=== PATIENT | female | born 1995 | race Caucasian/White ===

== ENCOUNTER 2021-04-11 11:57 | Outpatient (CLI) | payer BC ==
[~2021-04-11 11:57] MED LIST: ACET-2267 PO; ACYC400T21 PO; AMPH20TA2 PO; BUPR150T24 PO; IBUP-30 PO; VENL150C PO; VENL75CA PO
[2021-04-11 12:05] VITALS: BP 137/90
[2021-04-11] MEDS ORDERED: IRON DEXTRAN 1,000 MG/NS 250 ML IVPB IV ONE ×2 (12:15)
[2021-04-11] MEDS ORDERED: IRON DEXTRAN 25 MG/NS 6.25 ML TOTAL VOLUME IV ONE ×3 (12:15)
== END 2021-04-11 15:55 | disposition home or self-care (01) ==
LOC: SDC 11:57
PROVIDERS: ATTEND Internal Medicine
DX: E61.1 Iron deficiency (principal)

== ENCOUNTER → 2022-09-18 | Outpatient (CLI) | payer OTHER, BC ==
[~2022-09-18] VITALS: Ht 162.5 cm; Wt 99.0 kg
[~2022-09-18] MED LIST changes: +CARI1.5C PO; +SPIR50TA PO; +VALA500T4 PO; -VENL150C PO; +VENL150C3 PO; +VENL75TA2 PO
== END | disposition home or self-care (01) ==
LOC: PREOP 05:29
PROVIDERS: ATTEND Specialist
DX: Z01.818 Encounter for other preprocedural examination (principal)

== ENCOUNTER 2022-09-21 10:06 | Day surgery (SDC) | payer OTHER, BC ==
[~2022-09-21] VITALS: Ht 162.5 cm; Wt 99.0 kg
[2022-09-21] VITALS (10 sets, daily range): BP systolic 122–145; BP diastolic 75–96
[~2022-09-21 10:06] MED LIST changes: -VENL75TA2 PO
[2022-09-21] MEDS ORDERED: ceFAZolin INJECTION 2,000 MG in NS (IVPB) 50 ML IV ONE (10:30)
[2022-09-21] MEDS: LACTATED RINGERS 1,000 ML IV PRN ×2 (11:14→14:00)
[2022-09-21] MEDS ORDERED: LIDOCAINE PF 2% 5 ML (XYLOCAINE) VIAL ONE (11:51)
[2022-09-21] MEDS ORDERED: ONDANSETRON 4 MG/2 ML (SDV) Z0FRAN ONE (11:51)
[2022-09-21] MEDS ORDERED: fentaNYL INJ 100 MCG/2 ML AMP ONE (11:51)
[2022-09-21] MEDS ORDERED: proPOfol 200 MG/20 ML (DIPRIVAN) VIAL IV ONE (11:51)
[2022-09-21] MEDS ORDERED: MIDAZOLAM 2 MG/2 ML (VERSED) VIAL ONE (11:51)
[2022-09-21] MEDS ORDERED: LIDOCAINE/EPI 1%-1:100,000 (XYLOCAINE) 30ML ONE (12:11)
[2022-09-21] MEDS ORDERED: PHENYLEPHRINE 0.5% NASAL SPR (NEO-SYNEPHRINE) REG ONE (12:11)
[2022-09-21] MEDS ORDERED: NEO/POLY/BAC (NEOSPORIN) OINT 15 GM TUBE ONE (12:11)
[2022-09-21] MEDS ORDERED: ROPIVACAINE 5MG/ML 30ML VIAL ONE (12:11)
--- NOTE | 2022-09-21 13:13 | Progress Note-Pre Operative ---
Pre-Operative Progress Note Date of Available H&P: Sep 21, 2022 Date H&P Reviewed: Sep 21, 2022 Time H&P Reviewed: 11:30 Changes from last HP none Pre-Operative Diagnosis: open nsasal bones fx septal fx both open ENDY ROTH DDS Sep 21, 2022 13:13
[2022-09-21] MEDS ORDERED: HYDROcodone/APAP 7.5MG-325 MG/15 ML (LORTAB) UDC PO PRN (13:15)
[2022-09-21] MEDS ORDERED: VENL75TA2 PO (13:20)
[2022-09-21] MEDS ORDERED: ceFAZolin INJECTION 1,000 MG in NS (IVPB) 50 ML IV SCH (14:00)
--- NOTE | 2022-09-21 14:08 | Progress Note-Post Operative ---
Post-Operative Progess Note Surgeon (s)/Peripheral Equipment Operator (s) Surgeon ENDY ROTH DDS Peripheral Equipment Operator: radha hunt Pre-Operative Diagnosis open nsasal bones fx septal fx both open Post-Operative Diagnosis same Procedure & Operative Findings Date of Procedure 09/21/22 Procedure Performed/Findings closed nasal bones reduction, open septal reduction. Anesthesia Type laryngial mask Estimated Blood Loss Estimated blood loss (mL): 75 Specimens/Packing Specimens Removed none Packing: none ENDY ROTH DDS Sep 21, 2022 14:08
--- NOTE | 2022-09-21 14:18 | Anesthesia-General Post-Op ---
General Patient Condition Mental Status/LOC: Same as Preop Cardiovascular: Satisfactory Nausea/Vomiting: Absent Respiratory: Satisfactory Pain: Controlled Complications: Absent Post Op Complications Complications None Follow Up Care/Instructions Patient Instructions None needed. Anesthesia/Patient Condition Patient Condition Patient is doing well, no complaints, stable vital signs, no apparent adverse anesthesia problems. No complications reported per nursing. ADAMS SCHAEFFER CRNA Sep 21, 2022 14:18
[2022-09-21] MEDS ORDERED: HYDROcodone/APAP 7.5MG-325 MG/15 ML (LORTAB) UDC ONE (15:25)
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
== END 2022-09-21 16:10 | disposition home or self-care (01) ==
LOC: SDC 10:06
PROVIDERS: ATTEND Specialist
DX: S02.2XXB Fracture of nasal bones, initial encounter for open fracture (principal); V03.10XA Pedestrian on foot injured in collision with car, pick-up truck or van in traffic accident, initial encounter
CPT/HCPCS: 84703; 87081

== ENCOUNTER 2023-04-20 01:08 | Emergency (ER) | payer BC, OTHER ==
[~2023-04-20] VITALS: Ht 167.6 cm; Wt 100.0 kg
[~2023-04-20 01:08] MED LIST changes: +VENL75TA2 PO
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
[2023-04-20] MEDS ORDERED: ONDANSETRON 4 MG (ZOFRAN) ORAL DISSOLVE TAB PO STA (01:36)
[2023-04-20] MEDS ORDERED: ACETAMINOPHEN 500 MG TABLET PO ONE (01:45)
[2023-04-20] MEDS ORDERED: Tetanus/Diphtheria/Pertussis (Acell) ADULT Vaccine 0.5 ML IM ONE (01:45)
[2023-04-20] MEDS ORDERED: AMOX1TAB12 PO (03:20)
[2023-04-20 03:35] VITALS: BP 117/82
--- NOTE | 2023-04-20 08:05 | Diagnostic Imaging Report ---
PROCEDURE: CT maxillofacial without contrast. TECHNIQUE: Multiple contiguous axial images were obtained through the facial bones without the use of intravenous contrast. Auto Exposure Controls were utilized during the CT exam to meet ALARA standards for radiation dose reduction. INDICATION: 27-year-old female injured in fall presents with the laceration to the nose. COMPARISONS: None FINDINGS: Axial images in sagittal and coronal reconstructions of the facial bones show an intact mandible and maxilla. The nasal septum is midline. There is some minimal mucosal thickening in the maxillary sinuses. There is some mucosal thickening extending towards the ostiomeatal complexes. The nasal septum is midline. All the nasal bones appear symmetric. Nighthawk suggests possible nondisplaced fractures involving the nasal bones, however these may represent small collapse without fractures. There is some overlying soft tissue swelling over the nasal bridge. Orbits including both globes, retro-orbital extraconal, conal and intraconal spaces are normal. Zygomatic arches and pterygoid plates are symmetric. Mastoid air cells appear well pneumatized. IMPRESSION: 1. Suggestion of some nondisplaced nasal bone fractures with some overlying soft tissue swelling across the nasal bridge. 2. There is mild chronic bilateral maxillary sinus disease. Dictated by: Dictated on workstation # [id number]
== END 2023-04-20 03:35 | disposition home or self-care (01) ==
LOC: EDUNIT# 01:08 → ER 01:11
DX: S02.2XXA Fracture of nasal bones, initial encounter for closed fracture (principal); S00.212A Abrasion of left eyelid and periocular area, initial encounter; S00.511A Abrasion of lip, initial encounter; Z98.890 Other specified postprocedural states; W18.40XA Slipping, tripping and stumbling without falling, unspecified, initial encounter; Y93.01 Activity, walking, marching and hiking
CPT/HCPCS: 12011; 70486; 90715

== ENCOUNTER 2023-04-26 07:44 | Emergency (ER) | payer BC ==
[~2023-04-26] VITALS: Ht 162.5 cm; Wt 88.4 kg
[~2023-04-26 07:44] MED LIST changes: +AMOX1TAB12 PO
[2023-04-26 08:27] VITALS: BP 115/75
== END 2023-04-26 08:32 | disposition home or self-care (01) ==
LOC: EDUNIT# 07:44 → ER 07:47
DX: Z48.02 Encounter for removal of sutures (principal)

== ENCOUNTER → 2023-05-07 | Outpatient (CLI) | payer BC ==
[~2023-05-07] VITALS: Wt 88.4 kg
[~2023-05-07] MED LIST changes: +IRON SUCROSE 200 MG/10 ML VIAL IV SCH
[2023-05-07 13:12] VITALS: BP 136/74
== END ==
LOC: SDC 12:20
PROVIDERS: ATTEND Internal Medicine
DX: Z01.89 Encounter for other specified special examinations (principal)
CPT/HCPCS: 96365

== ENCOUNTER 2023-05-14 11:28 | Outpatient (RCR) | payer BC ==
[~2023-05-14 11:28] MED LIST changes: -IRON SUCROSE 200 MG/10 ML VIAL IV SCH
[2023-05-14 11:40] VITALS: BP 124/71
[2023-05-14] MEDS ORDERED: IRON SUCROSE 200 MG/10 ML VIAL IV SCH (11:45)
== END 2023-06-12 | disposition home or self-care (01) ==
LOC: SDC 11:28
PROVIDERS: ATTEND Internal Medicine
DX: D64.9 Anemia, unspecified (principal)
CPT/HCPCS: 96365